=== PATIENT | female | born 1980 | race Caucasian/White ===

== ENCOUNTER 2018-03-13 12:45 | Inpatient (IN) | payer OTHER ==
[~2018-03-13] VITALS: Ht 175.3 cm; Wt 85.7 kg
[2018-04-12] MEDS ORDERED: PRENATABS RX T1 EACH PO (03:55)
== END 2018-04-14 12:21 | disposition home or self-care (01) | DRG 775 ==
LOC: SURH 04-09 12:45 → OB/GYN 04-12 01:11 → SURH 04-12 12:45 → OB/GYN 04-14 12:21
PROC: 10E0XZZ Delivery of Products of Conception, External Approach (ICD-10-PCS; principal; 2018-04-12)
PROC: 4A1HXCZ Monitoring of Products of Conception, Cardiac Rate, External Approach (ICD-10-PCS; 2018-04-12)
DX: O80 Encounter for full-term uncomplicated delivery (principal); Z3A.40 40 weeks gestation of pregnancy; Z37.0 Single live birth; Z22.330 Carrier of Group B streptococcus